=== PATIENT | male | born 1955 | race Caucasian/White ===

== ENCOUNTER → 2017-07-27 | Outpatient (CLI) | payer OTHER ==
--- NOTE | 2017-07-27 14:32 | DIAGNOSTIC IMAGING REPORT ---
LEFT NECK ULTRASONOGRAPHY. CLINICAL HISTORY: Left-sided neck mass. COMPARISON STUDY: No previous studies for comparison. FINDINGS: There is a complex solid mass in the left submandibular region measuring 5 x 3.9 x 2.6 cm. This abuts the left subareolar gland. It is difficult on ultrasound to determine whether this mass arises from the subareolar gland or simply deforms it. This demonstrates flow on color Doppler evaluation. A neoplasm is strongly suspected and biopsy is recommended. IMPRESSION: Complex solid mass in the left submandibular region measuring 5 x 3.9 x 2.6 cm. This is likely neoplastic and a biopsy is recommended. Electronically signed by: Red Chung M.D. 07/27/2017 2:31 PM Dictated Date/Time: 07/27/2017 2:28 PM
== END | disposition home or self-care (01) ==
LOC: C.ULTR 13:51
PROVIDERS: ATTEND Family Medicine
DX: R22.1 Localized swelling, mass and lump, neck (principal)

== ENCOUNTER → 2017-08-01 | Outpatient (CLI) | payer OTHER | LOC: C.PATH 08:43 | PROVIDERS: ATTEND Family Medicine | DX: K11.9 Disease of salivary gland, unspecified (principal) ==

== ENCOUNTER → 2017-09-01 | Day surgery (SDC) | payer OTHER ==
[2017-08-28 10:11] VITALS: Ht 182.9 cm; Wt 97.8 kg
[2017-08-28 11:34] LABS: BASO % 0.5 %; BASO ABS # 0.05 K/uL (0-0.2); EOS % 3.1 %; EOS ABS # 0.32 K/uL (0-0.5); HEMATOCRIT 44.9 % (42-52); HEMOGLOBIN 14.8 g/dL (14.0-18.0); IG# 0.02 K/uL (0.00-0.02); LYMPH % 26.2 %; LYMPH ABS # 2.67 K/uL (1.2-3.4); MEAN CELL VOLUME 68.8 fL (80-100); MEAN CORPUSCULAR HEMOGLOBIN 22.7 pg (25-34); MEAN PLATELET VOLUME 9.9 fL (7.4-10.4); MONO % 11.6 %; MONO ABS # 1.18 K/uL (0.11-0.59); NEUT % 58.4 %; NEUT ABS # 5.97 K/uL (1.4-6.5); PLATELET COUNT 206 K/uL (130-400); RED CELL DISTRIBUTION WIDTH CV 16.5 % (11.5-14.5); RED CELL DISTRIBUTION WIDTH SD 40.3 fL (36.4-46.3); WHITE BLOOD COUNT 10.21 K/uL (4.8-10.8)
--- NOTE | 2017-08-31 16:12 | History and Physical ---
History & Physical Date Aug 31, 2017. Chief Complaint left neck mass History of Present Illness The patient is a 62 year old male with complaints of left tail of parotid mass, needle biopsy showed atypical cells Additional History Hepatic Disease: No Endocrine Disorder: No Kidney Disease: No Hypertension: No Heart Disease: No Bleeding Tendencies: No Infectious Diseases: No Allergies Coded Allergies: NO KNOWN DRUG ALLERGIES (Verified Allergy, Unknown, NONE, 08/28/17) Unclassified Drugs (Verified Allergy, Unknown, ANY FLOWERING PLANTS- SNEEZING, STUFFY NOSE-ASTHMA, 08/28/17) Home Medications Scheduled Bupropion (Zyban), 150 MG PO QAM Montelukast Sodium (Montelukast Sodium), 1 TAB PO QPM [Cream], 1 DOSE TOP PRN [Sudafed], 2 TAB PO PRN Scheduled PRN Albuterol Hfa (Ventolin Hfa), 2 PUFFS INH Q6H PRN for PRN Physical Examination Skin: warm/dry, no rash Eyes: normal inspection, EOMI, sclerae normal ENT: normal ENT inspection, pharynx normal Head: normocephalic, atraumatic Neck: + pertinent finding (5 cm left parotid mass, rubbery to soft) Respiratory/Chest: lungs clear, normal breath sounds, no respiratory distress Cardiovascular: regular rate, rhythm, no edema, no murmur Abdomen / GI: normal bowel sounds, non tender Back: normal inspection Extremities: normal inspection, normal range of motion Diagnosis left parotid mass Plan of Treatment left parotidectomy , frozen section, possible neck dissection
[~2017-09-01] VITALS: Ht 182.9 cm; Wt 97.8 kg
[~2017-09-01] MED LIST: ATROPINE SULFATE 0.1 MG/ML 5ML SYR IV PRN; BACITRACIN OINT 15 GM TUBE ONE; BUPR150T47 PO; CEFAZOLIN 2000MG IV PUSH 15 ML IV SCH; CREAM TOP; DEXAMETHASONE SOD INJ 4 MG/ML VIAL ONE; EpHEDrine SULFATE INJ 50 MG/ML AMP IV PRN; FENTANYL CITRATE INJ 50 MCG/1 ML 2 ML VIAL IV PRN; FENTANYL CITRATE INJ 50 MCG/1 ML 2 ML VIAL ONE; HYDR-5688 PO; HYDROCODONE/ACETAMIN 5/325MG TAB PO PRN; HYDROmorphone INJ 0.5 MG/0.5 ML SYR IV PRN; LACTATED RINGER'S 1000ML 1,000 ML IV SCH; LIDO 2%/EPINEPHRINE 1:100000 20 ML VIAL INFIL ONE; LIDOCAINE HCL 2% 2 ML VIAL (20MG/ML) ONE; MIDAZOLAM HCL 1 MG/ML 2ML VIAL ONE; MONT1TAB5 PO; NEOSTIGMINE METHYLSULFATE 5 MG/5 ML SYR ONE; ONDANSETRON INJ 2 MG/ML 2 ML VIAL IV PRN; ONDANSETRON INJ 2 MG/ML 2 ML VIAL ONE; PHENYLEPHRINE 100MCG/ML 5ML SYR ONE; PROPOFOL IV EMULSION 10 MG/ML 20 ML VIAL IV ONE; ROCURONIUM BROMIDE 10 MG/ML 5 ML VIAL IV ONE; SODIUM CHLORIDE 0.9% 1000ML 1,000 ML IV SCH; SUDAFED PO; VNTHFA/IN INH
[2017-09-01 05:52] VITALS: BP 139/90; PULSE 94; TEMP 36.8; O2SAT 93
--- NOTE | 2017-09-01 07:02 | History & Physical Bridge Note ---
H&P Re-Evaluation Bridge Note: I have examined the patient, reviewed the History & Physical and in the interval since the performance of the History & Physical I have noted the following changes of clinical significance: No changes noted
--- NOTE | 2017-09-01 08:58 | [facility] Post Operative Brief Note ---
Immediate Operative Summary Operative Date Sep 01, 2017. Pre-Operative Diagnosis Left Parotid Mass Post-Operative Diagnosis Left Parotid Mass Procedure(s) Performed Superficial Left Parotidectomy Surgeon Dr. Paez [place] Tender Head Surgeon(s) None Estimated Blood Loss 20ml Findings See Below Warthins Specimens Frozen Specimen #1 - left neck mass; sent out of room to lab at 0819 by OR jamaal Miller Drains ravi Anesthesia Type General Complication(s) none Disposition Accompanied Pt To Recover: yes Disposition: Recovery Room / PACU
--- NOTE | 2017-09-01 09:00 | Discharge Instructions ---
Discharge Instructions Date of Service Sep 01, 2017. Admission Reason for Admission: Left Neck Mass Discharge Discharge Diagnosis / Problem: Warthin's Discharge Goals Goal(s): Therapeutic intervention Activity Recommendations Activity Limitations: per Instructions/Follow-up section . Instructions / Follow-Up Instructions / Follow-Up ACTIVITY: Most patients are able to return to a full-time work schedule in 1 week; however this may vary according to your job. It may take longer to return to heavy physical or other demanding work, or shorter if you are feeling well. Do NOT drive a car until you are able to turn the neck side to side, which may take 1-[address] you are taking pain medicines. DIET: You may have temporary throat discomfort or difficulty swallowing. This is due to the surgery around your larynx (voice box) and esophagus (swallowing tube). These symptoms will gradually improve over the course of several weeks. Drink and eat foods that can be swallowed easily, e.g. juice, soup, gelatin, applesauce, scrambled eggs or mashed potatoes. You may be able to return to your usual diet in a couple of days. INCISION CARE: You may shower 24 hours after surgery but please do not swim or soak in a tub for at least 2 weeks. After you are done showering, just pat your incision dry. If it is draining clear fluid, you can cover it with a dry dressing (such as gauze). Do NOT scrub with soap or washcloth for the first 10 days. Mild swelling at the incision site will go away in 4-6 weeks. The pink line will slowly fade to white during the next 6-12 months. Use a sunscreen (SPF#30 or higher) or wear a scarf for protection if in the sun for the first 6 months to a year as the sun can darken your scar. You may begin to use a hypoallergenic moisturizing cream (no vitamin E, Mederma , or other scar creams) along the incision after 2 weeks. COMMON PROBLEMS: Numbness of the skin under the chin or above the incision is normal and should go away in a few weeks. You may feel a lump or pressure in your throat sensation when swallowing for a few days. Your incision may feel itchy while it heals. Avoid rubbing or scratching if possible. You may feel neck stiffness, tightness or a pulling feeling. Some people prefer to sleep with an extra pillow for the first few days after the surgery, this helps keep swelling around your incision to a minimum. Your voice may be hoarse or weak. Pitch or tone may change. You may have difficulty singing. This usually goes back to normal over 6 weeks to 6 months. After surgery, you may notice a change in your mood, emotional ups and downs, depression, irritability or fatigue and weakness. These changes will get better as time passes. You do not need to be at bed rest, being active is normally well tolerated within reason. CALL YOUR DOCTOR IF: For any non-urgent questions, call Dr. Nguyen office [phone] or the nursing unit where you were a patient. Call Dr. Paez [phone] or go to the Emergency Room if you have fever ( temperature greater than 100.5), chills, lightheadedness, shortness of breath, difficulty breathing, nausea, vomiting, numbness or tingling in your fingers, hands, or mouth, muscle spasms, or if you notice signs of wound infection ( redness, tenderness, or drainage from the incision). Please also call or go to the Emergency Room if you have any other urgent concerns. FOLLOW UP VISIT: Follow-up visit with Dr. Paez. Please call to schedule if not already scheduled. Current Hospital Diet Patient's current hospital diet: Discharge Diet Recommended Diet: Regular Diet Procedures Procedures Performed: Superficial Left Parotidectomy Pending Studies Studies pending at discharge: no Medical Emergencies . Who to Call and When: Medical Emergencies: If at any time you feel your situation is an emergency, please call [phone] immediately. . Non-Emergent Contact Non-Emergency issues call your: Primary Care Provider . "Provider Documentation" section prepared by Esthela Paez. . [place] Drug Monitoring Program Search Results: no issues identified
--- NOTE | 2017-09-01 10:09 | Anesthesiology Progress Note ---
Anesthesia Post Op Note Date & Time Sep 01, 2017 at 10:08 Vital Signs Pain Intensity: 0 Vital Signs Past 12 Hours Date Time Temp Pulse Resp B/P (MAP) Pulse Ox O2 Delivery O2 Flow Rate FiO2 09/01/17 09:50 36.5 84 16 159/87 94 Room Air 09/01/17 09:40 84 14 146/82 91 Room Air 09/01/17 09:30 85 19 145/93 92 Room Air 09/01/17 09:20 86 16 164/86 97 Oxymask 5 09/01/17 09:10 92 15 156/86 98 Oxymask 10 09/01/17 09:03 36.8 92 12 159/78 96 Oxymask 10 09/01/17 05:52 36.8 94 18 139/90 (106) 93 Room Air Notes Mental Status: alert / awake / arousable, participated in evaluation Pt Amnestic to Procedure: Yes Nausea / Vomiting: adequately controlled Pain: adequately controlled Airway Patency, RR, SpO2: stable & adequate BP & HR: stable & adequate Hydration State: stable & adequate Anesthetic Complications: no major complications apparent
[2017-09-01 10:10] VITALS: BP 159/87; PULSE 77; TEMP 36.7; O2SAT 93
[2017-09-01 10:40] VITALS: BP 149/73; PULSE 71; TEMP 36.7; O2SAT 93
[2017-09-01 11:10] VITALS: BP 163/86; PULSE 86; TEMP 36.7; O2SAT 93
--- NOTE | 2017-09-01 12:05 | OPERATIVE REPORT ---
DATE OF OPERATION: 09/01/2017 PREOPERATIVE DIAGNOSIS: Left parotid mass. POSTOPERATIVE DIAGNOSIS: Warthin's tumor. PROCEDURE: Left superficial parotidectomy. SURGEON: Esthela Paez MD ANESTHESIA: General endotracheal. COMPLICATIONS: None. BLOOD LOSS: 20 mL. HISTORY: A 62-year-old gentleman with a several-year history of left neck mass that has been increasing in size. He did undergo needle biopsy that showed atypical cells, admitted for excision. DESCRIPTION OF PROCEDURE: The patient brought to the operating room and placed in supine position. General endotracheal anesthesia was induced, prepped with ChloraPrep and draped in usual sterile manner. The incision was 2 fingerbreadths below the angle of the mandible curving in a curvilinear manner following the skin crease, curving superiorly toward the mastoid as a routine parotid excision. The incision was made using the 15 blade, carried down through the skin and subcutaneous layer and then through the platysma layer using the 15 blade. Superior and inferior flaps were elevated using the 15 blade and then the Metzenbaum scissors, isolating and preserving the posterior facial vein, preserving the greater auricular nerve, dissecting further inferiorly, superiorly and then to each side of the large 5 cm mass which was dissected free from the platysma above and sternocleidomastoid posteriorly and from the tail of the parotid superiorly. Superiorly, the dissection followed the angle of the mandible underneath the tail of the parotid, finding and preserving the lower branches of the facial nerve, preserving the marginal mandibular nerve by dissecting it all the way along with the superior skin flap and the posterior facial vein and then excising the mass. The mass was sent for frozen section which showed Warthin's tumor. At this point, the wound was irrigated with copious amounts of saline and then closed with interrupted 3-0 chromic sutures on the platysma layer and interrupted 4-0 Vicryl sutures on the subcutaneous layer and also on the subcuticular layer. The drain was sewn in with 3-0 silk sutures. The pressure dressing was placed. The patient tolerated the procedure well and was taken to recovery area in satisfactory condition. I attest to the content of the Intraoperative Record and any orders documented therein. Any exception s are noted below.
== END | disposition home or self-care (01) ==
LOC: C.ACU 05:24
PROVIDERS: ATTEND Otolaryngology
DX: D11.0 Benign neoplasm of parotid gland (principal); J44.9 Chronic obstructive pulmonary disease, unspecified; J45.909 Unspecified asthma, uncomplicated; Z79.899 Other long term (current) drug therapy; F17.200 Nicotine dependence, unspecified, uncomplicated; Z90.89 Acquired absence of other organs; Z98.890 Other specified postprocedural states

== ENCOUNTER → 2017-09-18 | Outpatient (CLI) | payer OTHER ==
[~2017-09-18] MED LIST changes: -ATROPINE SULFATE 0.1 MG/ML 5ML SYR IV PRN; -BACITRACIN OINT 15 GM TUBE ONE; -CEFAZOLIN 2000MG IV PUSH 15 ML IV SCH; -DEXAMETHASONE SOD INJ 4 MG/ML VIAL ONE; -EpHEDrine SULFATE INJ 50 MG/ML AMP IV PRN; -FENTANYL CITRATE INJ 50 MCG/1 ML 2 ML VIAL IV PRN; -FENTANYL CITRATE INJ 50 MCG/1 ML 2 ML VIAL ONE; -HYDROCODONE/ACETAMIN 5/325MG TAB PO PRN; -HYDROmorphone INJ 0.5 MG/0.5 ML SYR IV PRN; -LACTATED RINGER'S 1000ML 1,000 ML IV SCH; -LIDO 2%/EPINEPHRINE 1:100000 20 ML VIAL INFIL ONE; -LIDOCAINE HCL 2% 2 ML VIAL (20MG/ML) ONE; -MIDAZOLAM HCL 1 MG/ML 2ML VIAL ONE; -NEOSTIGMINE METHYLSULFATE 5 MG/5 ML SYR ONE; -ONDANSETRON INJ 2 MG/ML 2 ML VIAL IV PRN; -ONDANSETRON INJ 2 MG/ML 2 ML VIAL ONE; -PHENYLEPHRINE 100MCG/ML 5ML SYR ONE; -PROPOFOL IV EMULSION 10 MG/ML 20 ML VIAL IV ONE; -ROCURONIUM BROMIDE 10 MG/ML 5 ML VIAL IV ONE; -SODIUM CHLORIDE 0.9% 1000ML 1,000 ML IV SCH
--- NOTE | 2017-09-18 15:50 | DIAGNOSTIC IMAGING REPORT ---
LEFT HAND 3 VIEWS HISTORY: Left hand pain. COMPARISON: None. FINDINGS: There is no fracture or dislocation. Mild dorsal soft tissue swelling. No radiopaque foreign bodies. IMPRESSION: No acute fracture or dislocation within the left hand. Electronically signed by: Ruddy Sim M.D. 09/18/2017 3:49 PM Dictated Date/Time: 09/18/2017 3:46 PM
== END | disposition home or self-care (01) ==
LOC: C.RAD1850 15:30
PROVIDERS: ATTEND Family Medicine
DX: M79.642 Pain in left hand (principal)